=== PATIENT | female | born 1995 | race Caucasian/White ===

== ENCOUNTER 2024-10-30 10:05 | Emergency (ER) | payer SELFPAY ==
[2024-10-30] VITALS (21 sets, daily range): BP systolic 136–183; BP diastolic 98–130; PULSE 66–91; RESP 12–20; TEMP 36.7–36.8; O2SAT 95–100; BMI 30.4
--- NOTE | 2024-10-30 10:11 | ECG_ITS ---
APPROVED REPORT Exam: Resting ECG HR:75 bpm ECG Measurements Heart Rate 75 AXES AZ 136 P 29 QRSd 84 QRS 55 QT 369 T 33 QTc 398 Conclusion SINUS RHYTHM POSSIBLE ANTERIOR MYOCARDIAL INFARCTION , OF INDETERMINATE AGE [30 ms Q WAVE IN V3/V4, OR R < 0.2 mV IN V4] ABNORMAL ECG UNCONFIRMED REPORT Electronically signed by : JEROME DOCKERY, 10/31/2024 06:50:27
--- NOTE | 2024-10-30 10:43 | ED_ITS ---
Discharge Plan Disposition Patient Disposition: Home, Self-Care Prescriptions Prescriptions: No Action amlodipine 2.5 mg Tablet 2.5 mg PO DAILY lisinopril 10 mg Tablet 10 mg PO DAILY fenofibrate 160 mg Tablet 160 mg PO DAILY pantoprazole [Protonix] 20 mg Tablet,Delayed Release (Dr/Ec) 20 mg PO DAILY pregabalin [Lyrica] 200 mg Capsule 200 mg PO TID insulin glargine [Lantus U-100 Insulin] 100 unit/mL Solution 32 unit SQ BID tizanidine 4 mg tablet 4 mg PO DAILYDM Patient Comments: TAKE 1 TABLET BY MOUTH 3 TIMES DAILY NEEDED. FOR MUSCLE SPASM atorvastatin [Lipitor] 40 mg Tablet 40 mg PO DAILY duloxetine [Cymbalta] 60 mg Capsule,Delayed Release(Dr/Ec) 60 mg PO BID Referrals Follow up/Referrals: Manjula Ernandez DO [Staff Physician] - See instructions Activity Restrictions/Add. Instructions Additional Instructions/Restrictions: There is no intra-abdominal or cardiopulmonary emergency identified today with your emergency evaluation. However there was an incidental 4.9 cm cystic mass which appears to arise from your left ovary that needs follow-up with [facility]. A referral has been made please call make next available appointment for that. Otherwise follow-up with your primary care doctor for other concerns. Clinical Impressions Clinical Impression: Chest pain, Abdominal pain, RUQ, Cyst of left ovary Print Language Print Language: Chinese Discharge ED Provider: Mack Vincent HPI <Mack Vincent MD - Last Filed: 10/30/24 14:52> General Chief Complaint: Chest Pain Stated Complaint: CP Time Seen by Provider: 10/30/24 10:23 Mode of Arrival: EMS Source of Information: Patient Limitations: No Limitations Description of Symptoms (Recalled from ER Triage Doc. by RN): pt is here for chest pain upon inspiration x 1 week, states its sharp and crushing in nature, pt states she has gastro presis, type 1 dm, and htn. pt is in a ortho boot and has had big toe removed, normally gets care at [facility] History of Present Illness HPI narrative: Please note that above description of symptoms, in this electronic medical record under categorization of recalled from ER triage doctor by RN are reflective of an initial nursing assessment, however, is not reflective of my full history and physical exam that was personally taken and clarified. Consequentially, this preceding description of symptoms, which may include the patient's categorized chief complaint in the EMR, do not reflect my personal clinical impression, and the ultimate description of history of present illness and patient stated complaints should be deferred to this section of the note. Unless stated otherwise or congruent with this section of the note, additional signs, symptoms, or incongruence should be interpreted as inaccurate with my clinical impression. Related Data Home Medications ?Medication ?Instructions ?Recorded ?Confirmed amlodipine 2.5 mg tablet 2.5 mg PO DAILY 10/30/24 10/30/24 atorvastatin 40 mg tablet (Lipitor) 40 mg PO DAILY 10/30/24 10/30/24 duloxetine 60 mg capsule,delayed 60 mg PO BID 10/30/24 10/30/24 release (Cymbalta) fenofibrate 160 mg tablet 160 mg PO DAILY 10/30/24 10/30/24 insulin glargine 100 unit/mL 32 unit SQ BID 10/30/24 10/30/24 subcutaneous solution (Lantus U-100 Insulin) lisinopril 10 mg tablet 10 mg PO DAILY 10/30/24 10/30/24 pantoprazole 20 mg tablet,delayed 20 mg PO DAILY 10/30/24 10/30/24 release (Protonix) pregabalin 200 mg capsule (Lyrica) 200 mg PO TID 10/30/24 10/30/24 tizanidine 4 mg tablet 4 mg PO DAILYDM 10/30/24 10/30/24 Allergies Allergy/AdvReac Type Severity Reaction Status Date / Time Penicillins Allergy Rash Verified 10/30/24 10:31 [facility] <Mack Vincent MD - Last Filed: 10/30/24 14:52> [facility] Disclaimer: The information contained in this section may have been updated after the patient was seen, as this information can be updated by other users. Medical History (Updated 10/30/24 @ 16:09 by Elli Chan MD) Hypertension Gastroparesis Type 1 diabetes mellitus Social History (Updated 10/30/24 @ 14:52 by Mack Vincent MD) Smoking Status: Current every day smoker alcohol intake: current current occupational status: employed Travel in the last 8 weeks: None Have you lived/traveled outside [place] in past 30 days?: No Contact w/someone who lives/traveled outside US past 30 days?: No Exposure to someone with infectious disease in past 14 days?: No Do you have a fever (greater than 100.4 F or 38 C)?: No Have you tested positive for COVID-19: No Exposed to someone with COVID-19 in past 14 days?: No Do you have a sore throat?: No Do you have a cough?: No Do you have any weakness?: No Do you have any diarrhea?: No Are you experiencing any unusual bleeding?: No Do you have any muscle aches/pain?: No Do you have any abdominal pain?: No Are you experiencing loss of taste or smell?: No <Mack Vincent MD - Last Filed: 10/30/24 14:52> ROS Obtained: Yes All systems reviewed & no additional complaints except as documented Physical Exam <Mack Vincent MD - Last Filed: 10/30/24 14:52> General General appearance: alert and in no apparent distress Neck Neck exam: Present trachea midline Chest Chest inspection: Present normal inspection and symmetric chest wall rise Respiratory Respiratory exam: Present normal lung sounds bilaterally; Absent respiratory distress, wheezes, stridor, accessory muscle use or prolonged expiratory phase Cardiovascular Cardiovascular exam: Present regular rate, normal rhythm and other (Pulses equal and symmetric in upper and lower extremities) Abdominal Exam Abdominal exam: Present soft, tenderness and Salinas's sign; Absent distention, guarding, rebound, rigidity or tenderness at McBurney's Point Extremities Exam Extremities exam: Absent edema Neurological Exam Neurological exam: Present alert, oriented X3 and CN II-XII intact Skin Skin exam: Present warm and dry; Absent cyanosis, diaphoresis or pallor HEART Score <Mack Vincent MD - Last Filed: 10/30/24 14:52> HEART Score HEART Score assessment performed?: Yes HEART Score: 3 <Elli Chan MD - Last Filed: 10/30/24 16:11> HEART Score History (anamnesis): Slightly suspicious ECG: Non-specific disturbance Age: <45 years Risk factors: No known risk factors Troponin: </= normal limit HEART Score: 1 Procedures <Mack Vincent MD - Last Filed: 10/30/24 14:52> Limited Ultrasound Indication:: Limited RUQ ultrasound Indication: Abdominal pain, vomiting Identified structures: -Gallbladder -Gallbladder wall -Common bile duct -Liver Findings: Sonographic Salinas sign: Absent Gallstones: Absent Sludge: Absent Pericholecystic fluid: Absent Maximal GB wall thickness (mm) (normal is </= 3mm): Normal Common bile duct width (mm) (normal is </= 6mm): Normal Gallbladder width (cm) (normal is < 4cm): Normal Gallbladder length (cm) (normal is < 10cm): Normal Impression: Normal right upper quadrant ultrasound Images were saved to permanent archive The study was technically adequate CPT 54187-77 This study was performed by me, and I personally interpreted all images/videos. Based on my clinical judgement, these images were adequate and did not necessitate further imaging. Critical Care <Mack Vincent MD - Last Filed: 10/30/24 14:52> Critical Care Time Critical Care Time: No Medical Decision Making <Mack Vincent MD - Last Filed: 10/30/24 14:52> Medical Records Medical records reviewed: Yes I reviewed the patient's medical records. Remi Inquiry Pt receiving controlled substance: No Remi was queried for this patient: No Vital Signs Vital Signs: 10/30/24 10:05 10/30/24 10:15 10/30/24 10:25 Temperature 98.2 F Temperature Source Oral Pulse Rate 73 79 Pulse Rate [Left Radial] 79 Respiratory Rate 20 14 Blood Pressure 167/108 H Blood Pressure [Right Arm] 169/114 H Blood Pressure Mean [Right Arm] 132 02 Sat by Pulse Oximetry 99 98 Oxygen Delivery Method Room Air Room Air 10/30/24 10:30 10/30/24 10:45 10/30/24 11:15 Temperature Temperature Source Pulse Rate 86 74 77 Pulse Rate [Left Radial] Respiratory Rate 14 16 12 Blood Pressure 156/103 H 156/98 H 150/108 H Blood Pressure [Right Arm] Blood Pressure Mean [Right Arm] 02 Sat by Pulse Oximetry 98 98 96 Oxygen Delivery Method Room Air Room Air Room Air 10/30/24 11:31 10/30/24 11:45 10/30/24 12:00 Temperature Temperature Source Pulse Rate 91 H 67 66 Pulse Rate [Left Radial] Respiratory Rate 16 14 13 Blood Pressure 183/130 H 165/105 H 164/115 H Blood Pressure [Right Arm] Blood Pressure Mean [Right Arm] 02 Sat by Pulse Oximetry 95 99 99 Oxygen Delivery Method Room Air Room Air Room Air 10/30/24 12:15 10/30/24 12:30 10/30/24 12:45 Temperature Temperature Source Pulse Rate 82 67 80 Pulse Rate [Left Radial] Respiratory Rate 19 14 14 Blood Pressure 167/104 H 150/101 H 161/113 H Blood Pressure [Right Arm] Blood Pressure Mean [Right Arm] 02 Sat by Pulse Oximetry 100 99 99 Oxygen Delivery Method Room Air Room Air Room Air 10/30/24 13:00 10/30/24 13:15 10/30/24 14:46 Temperature Temperature Source Pulse Rate 87 86 80 Pulse Rate [Left Radial] Respiratory Rate 14 12 13 Blood Pressure 150/108 H 136/99 H 170/112 H Blood Pressure [Right Arm] Blood Pressure Mean [Right Arm] 02 Sat by Pulse Oximetry 99 98 97 Oxygen Delivery Method Room Air Room Air Room Air 10/30/24 15:00 Temperature Temperature Source Pulse Rate 80 Pulse Rate [Left Radial] Respiratory Rate 12 Blood Pressure 179/116 H Blood Pressure [Right Arm] Blood Pressure Mean [Right Arm] 02 Sat by Pulse Oximetry 98 Oxygen Delivery Method Room Air Lab Data Labs: Lab Results 10/30/24 10:25: WBC 12.2 H, RBC 4.44, Hgb 12.8, Hct 36.3 L, MCV 81.8, MCH 28.8, MCHC 35.3, RDW 13.0, Plt Count 338, MPV 10.4, Neut % (Auto) 70.4, Lymph % (Auto) 20.7, Arthur % (Auto) 5.1, Eos % (Auto) 2.1, Baso % (Auto) 1.1, Neut # (Auto) 8.6 H, Lymph # (Auto) 2.5, Arthur # (Auto) 0.6, Eos # (Auto) 0.3, Baso # (Auto) 0.1, PT 9.4, INR 0.83 L, APTT 23.8, D-Dimer 0.41, Sodium 136, Potassium 3.4 L, Chloride 104, Carbon Dioxide 22, Anion Gap 13.4, BUN 18 H, Creatinine 0.60, Estimated Creat Clear 200, Estimated GFR 119, Est GFR ( Amer) 144, G lucose 270 H, Hemoglobin A1c 8.2 H, Calcium 9.3, Magnesium 1.7, Total Bilirubin 0.4, AST 21, ALT 14, Alkaline Phosphatase 70, Troponin I < 0.01, Total Protein 6.6, Albumin 4.0, Globulin 2.6, Albumin/Globulin Ratio 1.5, Lipase 48, Procalcitonin 0.055, HCG, Quant < 2, Acetone Level None detected 10/30/24 10:52: VBG pH 7.48 H, VBG pCO2 28.2 L, VBG pO2 191.8 H, VBG HCO3 20.5 L , VBG Total CO2 21.3 L, VBG O2 Saturation 99.0 H, VBG Base Excess -3.0 L, VBG Lactic Acid 1.0 10/30/24 11:28: Urine Color Yellow, Urine Appearance Clear, Urine pH 7.0, Ur Specific [place] 1.010, Urine Protein Negative, Urine Glucose (UA) 2+, Urine Ketones Negative, Urine Blood Negative, Urine Nitrate Negative, Urine Bilirubin Negative, Urine Urobilinogen 0.2, Ur Leukocyte Esterase 1+ A, Urine RBC None, Urine WBC Occasional, Ur Squamous Epith Cells 3-5, Urine Bacteria Trace, Urine Opiates Screen Positive H, Urine Methadone Screen Negative, Ur Barbituates Screen Negative, Ur Phencyclidine Scrn Negative, Ur Amphetamines Screen Negative, U Benzodiazepines Scrn Negative, Urine Cocaine Screen Negative, U Marijuana (THC) Screen Positive H 10/30/24 13:44: Troponin I < 0.01 10/30/24 10:25 10/30/24 10:25 Response Orders (Tests/Meds): ED MEDICATIONS Discontinued Medications Generic Name Dose Route Start Last Admin Trade Name Freq PRN Reason Stop Dose Admin Belladonna Alkaloids 60 ml 10/30/24 10:44 10/30/24 11:10 Belladonna Alkaloids 60 Ml Ml PO 10/30/24 10:45 60 ml ONCE ONE Administration Sodium Chloride 1,000 mls @ 999 mls/hr 10/30/24 10:44 10/30/24 11:10 Sod Chlor 0.9% 1000ml Bag IV 10/30/24 11:44 999 mls/hr .Q1H1M ONE Administration Iopamidol 70 ml 10/30/24 14:08 10/30/24 14:09 Iopamidol-370 (76%);100ml Bottle IV 10/30/24 14:09 70 ml ONCE ONE Administration Morphine Sulfate 4 mg 10/30/24 10:44 10/30/24 11:10 Morphine 4mg/Ml Syringe IV 10/30/24 10:45 4 mg ONCE ONE Administration Morphine Sulfate 4 mg 10/30/24 13:22 10/30/24 13:28 Morphine 4mg/Ml Syringe IV 10/30/24 13:23 4 mg ONCE ONE Administration Ondansetron HCl 4 mg 10/30/24 10:44 10/30/24 11:10 Ondansetron 4mg/2ml Vial IV 10/30/24 10:45 4 mg ONCE ONE Administration Sodium Chloride 50 ml 10/30/24 14:08 10/30/24 14:09 0.9 % Sodium Chloride 50 Ml Vial IV 10/30/24 14:09 50 ml ONCE ONE Administration Sodium Chloride 10 ml 10/30/24 14:08 10/30/24 14:09 Sodium Chloride 0.9% 10ml Syr (Rad Only) IV 10/30/24 14:09 10 ml ONCE ONE Administration ORDERS Category Date Time Status CT angio abdomen pelvis Stat Cat Scan 10/30/24 12:[address] angio chest PE protocol Stat Cat Scan 10/30/24 12:55 Completed POCUS Point of Care (ER Only) Stat Exams 10/30/24 10:44 Completed XR chest portable Stat Exams 10/30/24 10:44 Completed Acetone, Serum (Rapid) Stat Lab 10/30/24 10:25 Completed Complete Blood Count Auto Diff Stat Lab 10/30/24 10:25 Completed Comprehensive Metabolic Panel Stat Lab 10/30/24 10:25 Completed D-Dimer Stat Lab 10/30/24 10:25 Completed Drug Screen,Urine Stat Lab 10/30/24 11:28 Completed HCG,Quantitative Stat Lab 10/30/24 10:25 Completed Hemoglobin A1C Stat Lab 10/30/24 10:25 Completed Lipase Stat Lab 10/30/24 10:25 Completed Magnesium Stat Lab 10/30/24 10:25 Completed PT INR [Prothrombin Time INR] Stat Lab 10/30/24 10:25 Completed PTT [Activated Partial Thrombo Time] Stat Lab 10/30/24 10:25 Completed Procalcitonin Stat Lab 10/30/24 10:25 Completed Troponin I Q3H Lab 10/30/24 13:44 Completed Troponin I Q3H Lab 10/30/24 16:45 Ordered Troponin I Stat Lab 10/30/24 10:25 Completed Urinalysis and Microscopic Stat Lab 10/30/24 11:28 Completed Blood Culture Stat Micro 10/30/24 11:02 Received Urine Culture Stat Micro 10/30/24 11:28 Received Venous Blood Gas Stat RT 10/30/24 10:52 Completed MDM Narrative Medical Decision Narrative: 29-year-old female history of uncontrolled type 1 diabetes presenting with abdominal/chest pain. States this has been going on for a couple of days, vomiting but is been nonbloody, nonbilious. Went to an outside ED, workup did not show anything. Continuing having epigastric pain that radiates to her right flank/back, so came in for further evaluation. No fevers or chills, urinary symptoms, stool symptoms, among others. History was obtained via conversation with patient. On arrival, patient hemodynamically stable, alert, oriented x4, appropriate, GCS 15, moving all extremities spontaneously, pupils equal and reactive to light. Full physical exam performed and significant for chronically ill-appearing, no acute distress and clinically well currently. Lungs are clear, cardiac exam without murmurs gallops rubs. No lower extremity edema, she does have a boot on her left lower extremity. 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 Abdomen soft, minimally tender, but Salinas sign positive and right upper quadrant. No flank tenderness. Differential includes PUD, gastritis, enteritis, gastroenteritis, pancreatitis, SBO, colitis, diverticulitis, nephrolithiasis, UTI, , cholecystitis, choledocholithiasis, appendicitis, hepatitis, torsion, aortic pathology, mesenteric ischemia, microvascular coronary artery disease, CHF, ACS, PR, coronary artery dissection, pneumothorax, PE, dissection, pericarditis, myocarditis, pneumothorax, aortic aneurysm, pneumonia, bronchitis, among others. Patient was given fluids, Zofran, GI cocktail, morphine for symptomatic management and correction of underlying abnormalities. Patient placed on continuous cardiac monitoring and continuous pulse ox with initial blood pressure 169/114, heart rate 79, saturation 99% on room air. Independent interpretation of EKG shows sinus rhythm 75 bpm with [place] 136, QRS 84, QTc 398. Normal axis. No acute ischemic change. Workup independently interpreted and significant for Mild leukocytosis 12.2. Coags normal VBG with mild metabolic acidosis with respiratory compensation pH 7.48/CO2 28.2/bicarb 20.5. Normal lactate. Nonactionable chemistry. A1c elevated 8.2. Troponin negative, negative. Acetone negative. Urinalysis without concern for UTI. Chest x-ray independently interpreted, no evidence of intrathoracic process. Bedside [id number] ultrasound negative. On room dilation, patient asking for Dilaudid by name specifically. Patient does not appear to be in pain on my evaluation. She is mildly hypertensive, but is noncompliant with medications and has history of hypertension. She is nontachycardic. Abdomen is benign. Meds were held off at this time, CT scan of the chest abdomen and pelvis ordered. On further conversation, patient states that she has had a DVT and is now having respirophasic chest pain. Scans ordered. On independent interpretation, I do not appreciate any PE, pneumothorax, intrathoracic or intra-abdominal abnormality. Prior to CT results, care handed off to oncoming physician Email Marketing Specialist disclaimer Much of this encounter note is an electronic loop drier operator spoken language to printed text. Electronic loop drier operator of the spoken language may permit errors. Although I have reviewed the note, some errors may still exist. <Elli Chan MD - Last Filed: 10/30/24 16:11> Vital Signs Vital Signs: 10/30/24 10:05 10/30/24 10:15 10/30/24 10:25 Temperature 98.2 F Temperature Source Oral Pulse Rate 73 79 Pulse Rate [Left Radial] 79 Respiratory Rate 20 14 Blood Pressure 167/108 H Blood Pressure [Right Arm] 169/114 H Blood Pressure Mean [Right Arm] 132 02 Sat by Pulse Oximetry 99 98 Oxygen Delivery Method Room Air Room Air 10/30/24 10:30 10/30/24 10:45 10/30/24 11:15 Temperature Temperature Source Pulse Rate 86 74 77 Pulse Rate [Left Radial] Respiratory Rate 14 16 12 Blood Pressure 156/103 H 156/98 H 150/108 H Blood Pressure [Right Arm] Blood Pressure Mean [Right Arm] 02 Sat by Pulse Oximetry 98 98 96 Oxygen Delivery Method Room Air Room Air Room Air 10/30/24 11:31 10/30/24 11:45 10/30/24 12:00 Temperature Temperature Source Pulse Rate 91 H 67 66 Pulse Rate [Left Radial] Respiratory Rate 16 14 13 Blood Pressure 183/130 H 165/105 H 164/115 H Blood Pressure [Right Arm] Blood Pressure Mean [Right Arm] 02 Sat by Pulse Oximetry 95 99 99 Oxygen Delivery Method Room Air Room Air Room Air 10/30/24 12:15 10/30/24 12:30 10/30/24 12:45 Temperature Temperature Source Pulse Rate 82 67 80 Pulse Rate [Left Radial] Respiratory Rate 19 14 14 Blood Pressure 167/104 H 150/101 H 161/113 H Blood Pressure [Right Arm] Blood Pressure Mean [Right Arm] 02 Sat by Pulse Oximetry 100 99 99 Oxygen Delivery Method Room Air Room Air Room Air 10/30/24 13:00 10/30/24 13:15 10/30/24 14:46 Temperature Temperature Source Pulse Rate 87 86 80 Pulse Rate [Left Radial] Respiratory Rate 14 12 13 Blood Pressure 150/108 H 136/99 H 170/112 H Blood Pressure [Right Arm] Blood Pressure Mean [Right Arm] 02 Sat by Pulse Oximetry 99 98 97 Oxygen Delivery Method Room Air Room Air Room Air 10/30/24 15:00 Temperature Temperature Source Pulse Rate 80 Pulse Rate [Left Radial] Respiratory Rate 12 Blood Pressure 179/116 H Blood Pressure [Right Arm] Blood Pressure Mean [Right Arm] 02 Sat by Pulse Oximetry 98 Oxygen Delivery Method Room Air Lab Data Lab results reviewed: Yes I reviewed the patient's lab results. Labs: Lab Results 10/30/24 10:25: WBC 12.2 H, RBC 4.44, Hgb 12.8, Hct 36.3 L, MCV 81.8, MCH 28.8, MCHC 35.3, RDW 13.0, Plt Count 338, MPV 10.4, Neut % (Auto) 70.4, Lymph % (Auto) 20.7, Arthur % (Auto) 5.1, Eos % (Auto) 2.1, Baso % (Auto) 1.1, Neut # (Auto) 8.6 H, Lymph # (Auto) 2.5, Arthur # (Auto) 0.6, Eos # (Auto) 0.3, Baso # (Auto) 0.1, PT 9.4, INR 0.83 L, APTT 23.8, D-Dimer 0.41, Sodium 136, Potassium 3.4 L, Chloride 104, Carbon Dioxide 22, Anion Gap 13.4, BUN 18 H, Creatinine 0.60, Estimated Creat Clear 200, Estimated GFR 119, Est GFR ( Amer) 144, G lucose 270 H, Hemoglobin A1c 8.2 H, Calcium 9.3, Magnesium 1.7, Total Bilirubin 0.4, AST 21, ALT 14, Alkaline Phosphatase 70, Troponin I < 0.01, Total Protein 6.6, Albumin 4.0, Globulin 2.6, Albumin/Globulin Ratio 1.5, Lipase 48, Procalcitonin 0.055, HCG, Quant < 2, Acetone Level None detected 10/30/24 10:52: VBG pH 7.48 H, VBG pCO2 28.2 L, VBG pO2 191.8 H, VBG HCO3 20.5 L , VBG Total CO2 21.3 L, VBG O2 Saturation 99.0 H, VBG Base Excess -3.0 L, VBG Lactic Acid 1.0 10/30/24 11:28: Urine Color Yellow, Urine Appearance Clear, Urine pH 7.0, Ur Specific [place] 1.010, Urine Protein Negative, Urine Glucose (UA) 2+, Urine Ketones Negative, Urine Blood Negative, Urine Nitrate Negative, Urine Bilirubin Negative, Urine Urobilinogen 0.2, Ur Leukocyte Esterase 1+ A, Urine RBC None, Urine WBC Occasional, Ur Squamous Epith Cells 3-5, Urine Bacteria Trace, Urine Opiates Screen Positive H, Urine Methadone Screen Negative, Ur Barbituates Screen Negative, Ur Phencyclidine Scrn Negative, Ur Amphetamines Screen Negative, U Benzodiazepines Scrn Negative, Urine Cocaine Screen Negative, U Marijuana (THC) Screen Positive H 10/30/24 13:44: Troponin I < 0.01 Response Orders (Tests/Meds): ED MEDICATIONS Discontinued Medications Generic Name Dose Route Start Last Admin Trade Name Freq PRN Reason Stop Dose Admin Belladonna Alkaloids 60 ml 10/30/24 10:44 10/30/24 11:10 Belladonna Alkaloids 60 Ml Ml PO 10/30/24 10:45 60 ml ONCE ONE Administration Sodium Chloride 1,000 mls @ 999 mls/hr 10/30/24 10:44 10/30/24 11:10 Sod Chlor 0.9% 1000ml Bag IV 10/30/24 11:44 999 mls/hr .Q1H1M ONE Administration Iopamidol 70 ml 10/30/24 14:08 10/30/24 14:09 Iopamidol-370 (76%);100ml Bottle IV 10/30/24 14:09 70 ml ONCE ONE Administration Morphine Sulfate 4 mg 10/30/24 10:44 10/30/24 11:10 Morphine 4mg/Ml Syringe IV 10/30/24 10:45 4 mg ONCE ONE Administration Morphine Sulfate 4 mg 10/30/24 13:22 10/30/24 13:28 Morphine 4mg/Ml Syringe IV 10/30/24 13:23 4 mg ONCE ONE Administration Ondansetron HCl 4 mg 10/30/24 10:44 10/30/24 11:10 Ondansetron 4mg/2ml Vial IV 10/30/24 10:45 4 mg ONCE ONE Administration Sodium Chloride 50 ml 10/30/24 14:08 10/30/24 14:09 0.9 % Sodium Chloride 50 Ml Vial IV 10/30/24 14:09 50 ml ONCE ONE Administration Sodium Chloride 10 ml 10/30/24 14:08 10/30/24 14:09 Sodium Chloride 0.9% 10ml Syr (Rad Only) IV 10/30/24 14:09 10 ml ONCE ONE Administration ORDERS Category Date Time Status CT angio abdomen pelvis Stat Cat Scan 10/30/24 12:[address] angio chest PE protocol Stat Cat Scan 10/30/24 12:55 Completed POCUS Point of Care (ER Only) Stat Exams 10/30/24 10:44 Completed XR chest portable Stat Exams 10/30/24 10:44 Completed Acetone, Serum (Rapid) Stat Lab 10/30/24 10:25 Completed Complete Blood Count Auto Diff Stat Lab 10/30/24 10:25 Completed Comprehensive Metabolic Panel Stat Lab 10/30/24 10:25 Completed D-Dimer Stat Lab 10/30/24 10:25 Completed Drug Screen,Urine Stat Lab 10/30/24 11:28 Completed HCG,Quantitative Stat Lab 10/30/24 10:25 Completed Hemoglobin A1C Stat Lab 10/30/24 10:25 Completed Lipase Stat Lab 10/30/24 10:25 Completed Magnesium Stat Lab 10/30/24 10:25 Completed PT INR [Prothrombin Time INR] Stat Lab 10/30/24 10:25 Completed PTT [Activated Partial Thrombo Time] Stat Lab 10/30/24 10:25 Completed Procalcitonin Stat Lab 10/30/24 10:25 Completed Troponin I Q3H Lab 10/30/24 13:44 Completed Troponin I Q3H Lab 10/30/24 16:45 Ordered Troponin I Stat Lab 10/30/24 10:25 Completed Urinalysis and Microscopic Stat Lab 10/30/24 11:28 Completed Blood Culture Stat Micro 10/30/24 11:02 Received Urine Culture Stat Micro 10/30/24 11:28 Received Venous Blood Gas Stat RT 10/30/24 10:52 Completed MDM Narrative Medical Decision Narrative: 29-year-old female history of uncontrolled type 1 diabetes presenting with abdominal/chest pain. States this has been going on for a couple of days, vomiting but is been nonbloody, nonbilious. Went to an outside ED, workup did not show anything. Continuing having epigastric pain that radiates to her right flank/back, so came in for further evaluation. No fevers or chills, urinary symptoms, stool symptoms, among others. History was obtained via conversation with patient. On arrival, patient hemodynamically stable, alert, oriented x4, appropriate, GCS 15, moving all extremities spontaneously, pupils equal and reactive to light. Full physical exam performed and significant for chronically ill-appearing, no acute distress and clinically well currently. Lungs are clear, cardiac exam without murmurs gallops rubs. No lower extremity edema, she does have a boot on her left lower extremity. 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 Abdomen soft, minimally tender, but Salinas sign positive and right upper quadrant. No flank tenderness. Differential includes PUD, gastritis, enteritis, gastroenteritis, pancreatitis, SBO, colitis, diverticulitis, nephrolithiasis, UTI, , cholecystitis, choledocholithiasis, appendicitis, hepatitis, torsion, aortic pathology, mesenteric ischemia, microvascular coronary artery disease, CHF, ACS, PR, coronary artery dissection, pneumothorax, PE, dissection, pericarditis, myocarditis, pneumothorax, aortic aneurysm, pneumonia, bronchitis, among others. Patient was given fluids, Zofran, GI cocktail, morphine for symptomatic management and correction of underlying abnormalities. Patient placed on continuous cardiac monitoring and continuous pulse ox with initial blood pressure 169/114, heart rate 79, saturation 99% on room air. Independent interpretation of EKG shows sinus rhythm 75 bpm with AZ 136, QRS 84, QTc 398. Normal axis. No acute ischemic change. Workup independently interpreted and significant for Mild leukocytosis 12.2. Coags normal VBG with mild metabolic acidosis with respiratory compensation pH 7.48/CO2 28.2/bicarb 20.5. Normal lactate. Nonactionable chemistry. A1c elevated 8.2. Troponin negative, negative. Acetone negative. Urinalysis without concern for UTI. Chest x-ray independently interpreted, no evidence of intrathoracic process. Bedside gddco-sy-abeo ultrasound negative. On room dilation, patient asking for Dilaudid by name specifically. Patient does not appear to be in pain on my evaluation. She is mildly hypertensive, but is noncompliant with medications and has history of hypertension. She is nontachycardic. Abdomen is benign. Meds were held off at this time, CT scan of the chest abdomen and pelvis ordered. On further conversation, patient states that she has had a DVT and is now having respirophasic chest pain. Scans ordered. On independent interpretation, I do not appreciate any PE, pneumothorax, intrathoracic or intra-abdominal abnormality. Prior to CT results, care handed off to oncoming physician Email Marketing Specialist disclaimer Much of this encounter note is an electronic loop drier operator spoken language to printed text. Electronic loop drier operator of the spoken language may permit errors. Although I have reviewed the note, some errors may still exist. Reassessment this is Dr. Chan at 4:10 PM I took over from Dr. Vincent. CT scans were performed and I reviewed radiology reads which did not show any evidence of any intra-abdominal pathology or cardiopulmonary pathology specifically no aortic dissection or pulmonary embolism etc. Also nothing to explain her epigastric or right upper quadrant abdominal pain. However there was an incidental 4.9 cm cystic mass which appears to arise from the left ovary. This was explained to the patient she is aware that this needs close outpatient FAMILY CONSUMER SCIENTIST follow-up. She has no lower abdominal discomfort this is not concerning for torsion etc. Additionally patient's urinalysis was not completely normal but she has no signs or symptoms of urinary tract infection either. Patient was discharged in improved and stable condition.
--- NOTE | 2024-10-30 10:44 | XR_ITS ---
FINAL REPORT CLINICAL HISTORY: cp, soa COMPARISON: 08/19/2022 FINDINGS: CHEST: A single view of the chest was performed. The patient is skeletally immature. The heart size is normal. The mediastinum is normal. There is no focal infiltrate or edema. There are no pleural effusions. There is no pneumothorax. There is no osseous abnormality. IMPRESSION: No acute cardiopulmonary process Reviewed, Interpreted and Dictated by José Carvajal MD Transcribed by Sandrine King Authenticated and [facility]
[2024-10-30 10:53] LABS: Acetone, Serum (Rapid) None Detected (None Detect)
[2024-10-30 10:56] LABS: Basophils # 0.1 K/mm3 (0-0.2); Basophils % 1.1 % (0.1-2.0); Eosinophils # 0.3 K/mm3 (0.0-0.4); Eosinophils % 2.1 % (0.1-12.0); Hematocrit 36.3 % (37.0-47.0); Hemoglobin 12.8 g/dL (12.2-16.2); Lymphocytes # 2.5 K/mm3 (0.7-4.5); Lymphocytes % 20.7 % (10-50); Mean Corpuscular HGB Conc 35.3 g/dL (31.8-35.4); Mean Corpuscular Hemoglobin 28.8 pg (27.0-31.2); Mean Corpuscular Volume 81.8 fl (81-99); Mean Platelet Volume 10.4 fl (7.4-10.4); Monocytes # 0.6 K/mm3 (0.1-1.0); Monocytes % 5.1 % (1.7-9.3); Neutrophils # 8.6 K/mm3 (1.8-7.8); Neutrophils % 70.4 % (37.0-80.0); Platelet Count 338 K/mm3 (142-424); Red Blood Count 4.44 M/mm3 (4.20-5.40); White Blood Count 12.2 K/mm3 (4.8-10.8)
[2024-10-30 10:57] LABS: VBG HCO3 20.5 mmol/L (23-30); VBG PCO2 28.2 mmol/L (35-51); VBG PH 7.48 mmol/L (7.31-7.41); VBG PO2 191.8 mmol/L (28-40); VBG Total CO2 21.3 mmol/L (23-27)
[2024-10-30 10:57] LABS: Alanine Aminotransferase 14 U/L (12-78); Albumin/Globulin Ratio 1.5 (1.1-1.8); Alkaline Phosphatase 70 U/L (38-126); Anion Gap 13.4 mEq/L (5-15); Aspartate Amino Transferase 21 U/L (14-36); Bilirubin,Total 0.4 mg/dl (0.2-1.3); Blood Urea Nitrogen 18 mg/dl (7-17); Calcium 9.3 mg/dl (8.4-10.2); Carbon Dioxide 22 mmol/L (22.0-30.0); Chloride 104 mmol/L (98-107); Creatinine Clearance Estimated 200 mL/min (50-200); Estimated Glomerular Filt Rate 119 ml/min (>60); GFR (African American) 144 ML/MIN (>60); Globulin 2.6 g/dL (1.3-3.2); Glucose 270 mg/dl (74-100); Potassium 3.4 mmoL/L (3.5-5.1); Sodium 136 mmol/L (136-145); Total Protein,Serum 6.6 g/dl (6.3-8.2)
[2024-10-30 10:58] LABS: Lipase 48 U/L (23-300); Magnesium 1.7 mg/dl (1.6-2.3)
[2024-10-30 11:04] LABS: Activated Partial Thrombo Time 23.8 seconds (22.5-28.5)
[2024-10-30] MEDS: ONDANSETRON 4MG/2ML VIAL 4 MG IV (11:10)
[2024-10-30] MEDS: BELLADONNA ALKALOIDS 60 ML ML PO (11:10)
[2024-10-30] MEDS: MORPHINE 4MG/ML SYRINGE 4 MG IV ×2 (11:10→13:28)
[2024-10-30] MEDS: 0.9 % SODIUM CHLORIDE 1000ML 1,000 ML 999 ML IV (11:10)
--- NOTE | 2024-10-30 11:11 | PC.NURSE ---
PT MEDICATED PER EMAR, CALL LIGHT WITHIN REACH. NO NEEDS AT THIS TIME
[2024-10-30 11:13] LABS: INR 0.83 (0.9-1.1); Prothrombin Time 9.4 seconds (9.2-12.1)
[2024-10-30 11:15] LABS: Procalcitonin 0.055 ng/mL (0.0-2.0)
[2024-10-30 11:17] LABS: HCG,Quantitative < 2 mIU/ml (0-5.42)
[2024-10-30 11:18] LABS: Troponin I < 0.01 ng/ml (0.00-0.034)
[2024-10-30 11:33] LABS: D-Dimer 0.41 ug/mL (0.0-0.5)
[2024-10-30 11:35] LABS: Microscopic, Urine URINE MICROSCOPIC (MICROSCOPIC)
[2024-10-30 11:36] LABS: Appearance,Urine CLEAR (Clear); Bilirubin,Urine Negative (Negative); Blood, Urine Negative (Negative); Color,Urine YELLOW (Yellow); Glucose,Urine (UA) 2+ (Negative); Ketones,Urine Negative (Negative); Leukocyte Esterase,Urine 1+ (Negative); Nitrate,Urine Negative (Negative); Protein,Urine Negative (Negative); Urobilinogen,Urine 0.2 EU/dl (0.2)
[2024-10-30 11:47] LABS: Bacteria,Urine Trace /lpf; WBC,Urine Occasional #/hpf (0-3)
--- NOTE | 2024-10-30 11:52 | PC.NURSE ---
pt called out for to say the morphine we gave her didnt work and normally everywhere else has to give dilaudid for her relief, ER made aware, no further orders
[2024-10-30 11:53] LABS: Hemoglobin A1C 8.2 % (4.0-6.0)
[2024-10-30 12:03] LABS: Amphetamine/Metha Screen,Urine Negative ng/ml (<1000); Barbiturates Screen,Urine Negative ng/ml (<200); Benzodiazepines Screen,Urine Negative ng/ml (<200); Cannabinoid Screen,Urine Positive ng/ml (<50); Cocaine Screen,Urine Negative ng/ml (<300); Methadone Screen,Urine Negative ng/ml (<300); Opiate Screen,Urine Positive ng/ml (<300); Phencyclidine Screen,Urine Negative ng/ml (<25)
--- NOTE | 2024-10-30 12:55 | CT_ITS ---
FINAL REPORT TECHNIQUE: The patient was injected with IV contrast. Axial images were obtained through the chest in a PE protocol. 3-D reconstruction images were also performed. Individualized dose reduction techniques using automated exposure control or adjustment of the MA and/or KV according to patient's size were employed. CLINICAL HISTORY: respirophasic pain, history of DVT COMPARISON: None FINDINGS: Soft tissue in the anterior mediastinum is probable residual thymic tissue. Mediastinal vasculature is adequately opacified. No pulmonary artery filling defects are identified to suggest PE. There is no aortic dissection. There is no axillary adenopathy. There is no hilar or mediastinal adenopathy. The heart size is normal. There is no pericardial or pleural effusion. Limited images of the upper abdomen are unremarkable. No suspicious infiltrate or nodule is identified. IMPRESSION: No pulmonary embolus or dissection. Reviewed, Interpreted and Dictated by José Carvajal MD Transcribed by Sarah Felder Authenticated and . [facility]
--- NOTE | 2024-10-30 12:55 | CT_ITS ---
FINAL REPORT TECHNIQUE: Pre-and postcontrast images of the abdomen and pelvis were performed by computed tomography. Extensive 3-D reconstruction images were performed. A CTA was performed. This study was performed with techniques to keep radiation doses as low as reasonably achievable (ALARA). Individualized dose reduction techniques using automated exposure control or adjustment of mA and/or kV according to the patient''s size were employed. CLINICAL HISTORY: RUQ/epigastric pain FINDINGS: ABDOMEN AND PELVIS: The lung bases are clear. Precontrast images demonstrate no evidence of nephrolithiasis. No adrenal masses are identified. The liver, spleen and pancreas are unremarkable. The appendix is normal. There is a cystic structure in the mid pelvis measuring up to 4.9 cm likely related to a left ovarian cyst. The uterus is present. CTA: The abdominal aorta is proper caliber. The SMA, celiac axis, and SHELDON are patent. There is no significant stenosis or calcification. The renal arteries are patent bilaterally. IMPRESSION: No evidence of renal vascular hypertension or significant renal artery stenosis. 4.9 cm cystic mass which appears to arise from the left ovary. Recommend SURVEILLANCE SUPERVISOR consultation and follow-up endovaginal ultrasound in 6-10 weeks time. Reviewed, Interpreted and Dictated by José Carvajal MD Transcribed by Anju Weber Authenticated and [facility]
[2024-10-30] MEDS: IOPAMIDOL-370 (76%);100ML BOTTLE 70 ML IV (14:09)
[2024-10-30] MEDS: SODIUM CHLORIDE 0.9% 10ML SYR (RAD ONLY) 10 ML IV (14:09)
[2024-10-30] MEDS: 0.9 % SODIUM CHLORIDE 50 ML VIAL IV (14:09)
[2024-10-30 14:16] LABS: Troponin I < 0.01 ng/ml (0.00-0.034)
--- NOTE | 2024-10-30 14:35 | PC.NURSE ---
pt resting quietly awaiting ct scan results
--- NOTE | 2024-10-30 14:54 | PC.NURSE ---
PT WAS GIVEN A WARM BLANEKT
--- NOTE | 2024-10-30 15:03 | PC.NURSE ---
gave patient soda while awaiting test results
--- NOTE | 2024-10-30 15:20 | PC.NURSE ---
MD aware of hypertension at this time. no new orders
--- NOTE | 2024-10-30 16:02 | PC.NURSE ---
spoke with Lashaun in radiology about the patient's CT abd. CT. they stated a prelim just came back and they will fax it over.
--- NOTE | 2024-10-30 16:07 | PC.NURSE ---
Dr. Chan at bedside
== END 2024-10-30 16:28 | disposition home or self-care (01) ==
PROVIDERS: Emergency Provider Emergency Medicine
DX: N83.202 Unspecified ovarian cyst, left side (principal); R07.9 Chest pain, unspecified; R10.11 Right upper quadrant pain; F17.210 Nicotine dependence, cigarettes, uncomplicated
CPT/HCPCS: 71045; 71275; 74174; 80053; 80307; 81001; 82009; 82803; 83036; 83690; 83735; 84145; 84484; 84702; 85025; 85378; 85610; 85730; 87040; 87086; 93005; 96361; 96374; 96375; 99285; J2270; J2405; J7030; Q9967

== ENCOUNTER 2025-03-15 15:33 | Emergency (ER) | payer SELFPAY ==
--- NOTE | 2025-03-15 15:35 | ECG_ITS ---
APPROVED REPORT Exam: Resting ECG HR:84 bpm ECG Measurements Heart Rate 84 AXES DC 153 P 61 QRSd 92 QRS 70 QT 389 T 62 QTc 431 Conclusion SINUS RHYTHM NORMAL ECG Electronically signed by : GOLD TORRES, 03/15/2025 23:41:41
[2025-03-15 15:40] VITALS: BP 159/108; PULSE 81; RESP 18; TEMP 36.8; O2SAT 99; BMI 27.3
--- OUTSIDE RECORDS SUMMARY | 2025-03-15 15:45 | XMS_ITS | Clinical Summary ---
Author Organization [employer] [facility] Address [address] [place] [address] Phone Care Team Providers Care Patient Services Technician Name Role Phone Shannen AREVALO Rhnea Primary Care Physician Unavail able Conditions or Problems Problem Name Problem Code Onset Date Status Entry Date Provider Comment Standard Description Annotate Body mass index (BMI) 31.0-31.9; adult Z68.31 (ICD-10-CM ) 01/04 Active 01/14 [facility] MANAGER QUALITY COMPLIANCE Body mass index [BMI] 31.0-31.9, adult Body mass index (BMI) 30.0-30.9; adult Z68.30 (ICD-10-CM ) 12/24 Correction 12/25 [facility] MANAGER QUALITY COMPLIANCE Body mass index [BMI] 30.0-30.9, adult Acute pancreatitis without necrosis or infection, unspecified 842657256 (SNOMED CT) 01/04 Active 01/04 [facility] MANAGER QUALITY COMPLIANCE Acute pancreatitis Hypertriglyc eridemia 144755124 (SNOMED CT) 01/04 Active 01/04 [facility] MANAGER QUALITY COMPLIANCE Hypertriglyceri demia Body mass index (BMI) 30.0-30.9; adult Z68.30 (ICD-10-CM ) 12/24 Removed 12/25 Chayo Chai DO Body mass index [BMI] 30.0-30.9, adult Body mass index (BMI) 30.0-30.9; adult Z68.30 (ICD-10-CM ) 12/24 Correction 12/24 Chayo Chai DO Body mass index [BMI] 30.0-30.9, adult History of deep venous thrombosis 633650202 (SNOMED CT) 12/24 Active 12/24 Chayo Chai DO H/O: thrombosis Body mass index (BMI) 30.0-30.9; adult Z68.30 (ICD-10-CM ) 12/24 Removed 12/24 Chayo Chai DO Body mass index [BMI] 30.0-30.9, adult Body mass index (BMI) 31.0-31.9; adult Z68.31 (ICD-10-CM ) Correction 09/27 Chayo Chai DO Body mass index [BMI] 31.0-31.9, adult Body mass index (BMI) 31.0-31.9; adult Z68.31 (ICD-10-CM ) Removed 09/27 Netta Elizalde APRN Body mass index [BMI] 31.0-31.9, adult Body mass index (BMI) 31.0-31.9; adult Z68.31 (ICD-10-CM ) 10/17 Correction 10/28 Netta Elizalde APRN Body mass index [BMI] 31.0-31.9, adult Tobacco User 133353276 (SNOMED CT) Active 09/27 Netta Elizalde APRN Tobacco user Body mass index (BMI) 31.0-31.9; adult Z68.31 (ICD-10-CM ) 10/17 Removed 10/28 Netta Elizalde APRN Body mass index [BMI] 31.0-31.9, adult Drug seeking behavior 741137340 (SNOMED CT) 10/17 Active 10/28 Netta Elizalde APRN Drug seeking behavior Body mass index (BMI) 31.0-31.9; adult Z68.31 (ICD-10-CM ) 10/17 Correction 10/17 Netta Fide WINSTON Body mass index [BMI] 31.0-31.9, adult Surgical amputation of toe 988298496 (SNOMED CT) 10/17 Active 10/28 Netta Elizalde MANAGER QUALITY COMPLIANCE Amputated toe Peripheral neuropathy 508890737 (SNOMED CT) 10/17 Active 10/17 Swapna Gallegos CMA Peripheral nerve disease Body mass index (BMI) 31.0-31.9; adult Z68.31 (ICD-10-CM ) 10/17 Removed 10/17 Swapna Gallegos CMA Body mass index [BMI] 31.0-31.9, adult Type 2 diabetes mellitus with other specified complication 638193552 (SNOMED CT) 10/17 Active 10/17 Swapna Gallegos CMA Well controlled type 2 diabetes mellitus Medications Medication Instructions Start Date Stop Date Generic Name [facility] Provider CONNIE SOLOSTAR 100 UNIT/ML SOPN Inject 33 unit twice a day as directed insulin glargine [id number] [facility] MANAGER QUALITY COMPLIANCE ELIQUIS 5 MG TABS 01/04 apixaban 46781330037 [facility] MANAGER QUALITY COMPLIANCE METOPROLOL TARTRATE 25 MG TABS Take 1 tablet by mouth twice a day metoprolol tartrate 97997414413 [facility] MANAGER QUALITY COMPLIANCE NOVOLOG FLEXPEN RELION 100 UNIT/ML SOPN Inject 8 unit subcutaneously three times a day as directed according to blood sugar insulin aspart u-100 15543049324 [facility] MANAGER QUALITY COMPLIANCE VITAMIN D (ERGOCALCIFEROL ) 1.25 MG (44499 UT) CAPS Take 1 capsule by mouth once a week ergocalciferol (vitamin d2) 71611592410 Chayo Chai DO DULOXETINE HCL 30 MG CPEP 12/24 duloxetine 69159676011 Chayo Chai DO METFORMIN HCL ER 500 MG [id number] Take 2 tablet by mouth twice a day metformin 93201460559 Chayo Chai DO ONDANSETRON 4 MG TBDP 12/24 ondansetron 29464149261 Chayo Chai DO PANTOPRAZOLE SODIUM 20 MG TBEC 12/24 pantoprazole 11398684827 Chayo Chai DO FENOFIBRATE 145 MG TABS 12/24 fenofibrate nanocrystallized 79158251082 Chayo Chai DO NOVOLOG FLEXPEN RELION 100 UNIT/ML SOPN 12/24 insulin aspart u-100 97814099295 Chayo Chai DO OXYCODONE-ACETA MINOPHEN 10-325 MG TABS 12/24 oxycodone-acetamin ophen 94624918906 Chayo Chai DO ATORVASTATIN CALCIUM 40 MG TABS 12/24 atorvastatin 30487202729 Chayo Chai DO LANTUS SOLOSTAR 100 UNIT/ML SOPN 12/24 insulin glargine 67052810783 Chayo Chai DO ATORVASTATIN CALCIUM 40 MG TABS Take 1 tablet by mouth once a day as directed atorvastatin 08233527596 Chayo Chai DO DULOXETINE HCL 30 MG CPEP Take 1 capsule by mouth three times a day as directed duloxetine 04389253945 Chayo Chai DO FENOFIBRATE 145 MG TABS Take 1 tablet by mouth once a day as directed fenofibrate nanocrystallized 20108433115 Chayo Chai DO LANTUS SOLOSTAR 100 UNIT/ML SOPN Inject 30 unit twice a day as directed insulin glargine 84454058604 Chayo Chai DO NOVOLOG FLEXPEN RELION 100 UNIT/ML SOPN Inject 8 unit subcutaneously three times a day as directed insulin aspart u-100 08061301310 Chayo Chai DO PANTOPRAZOLE SODIUM 20 MG TBEC Take 1 tablet by mouth once a day as directed pantoprazole 95620222566 Chayo Chai DO VITAMIN D (ERGOCALCIFEROL ) 71875 UNIT CAPS 10/06 ergocalciferol (vitamin d2) 72080350265 Netta Elizalde APRN VITAMIN D (ERGOCALCIFEROL ) 1.25 MG (29237 UT) CAPS Take 1 capsule by mouth once a week ergocalciferol (vitamin d2) 41944216576 Netta Elizalde APRN MICRODOT PEN NEEDLE 32G X 4 MM Use 1 needle subcutaneously as directed 11/12 pen needle, diabetic 48525618685 Netta Fide MANAGER QUALITY COMPLIANCE BD PEN NEEDLE YOVANY 2ND GEN 32G X 4 MM Use 1 needle subcutaneously four times a day with pen pen needle, diabetic 20104220244 Netta Elizalde MANAGER QUALITY COMPLIANCE PREGABALIN 200 MG CAPS 11/05 pregabalin 78718662615 Netta Elizalde APRN PREGABALIN 200 MG CAPS 1 capsule by mouth three times a day pregabalin 50988223109 Netta Elizalde APRN MICRODOT PEN NEEDLE 32G X 4 MM 10/17 pen needle, diabetic 05094907981 Netta Elizalde MANAGER QUALITY COMPLIANCE MICRODOT PEN NEEDLE 32G X 4 MM Use 1 needle subcutaneously as directed pen needle, diabetic 80792260244 Netta Elizalde APRN FREESTYLE DELICIA 2 SENSOR flash glucose sensor 58539632371 Rose Mary Petit MA ELIQUIS 5 MG TABS apixaban 36175261025 Rose Mary Petit MA FREESTYLE DELICIA 2 READER CADEN flash glucose scanning reader 74190901777 Rose Mary Petit MA ICOSAPENT ETHYL 1 GM CAPS icosapent ethyl 84183039576 Ximena Petit MA LANTUS SOLOSTAR 100 UNIT/ML SOPN insulin glargine 69901634047 Rashmi Petit MA FENOFIBRATE 145 MG TABS fenofibrate nanocrystallized 89028290943 Rose Mary Petit MA PREGABALIN 200 MG CAPS pregabalin 79220532031 Rose Mary Petit MA DULOXETINE HCL 30 MG CPEP duloxetine 93131771440 Rose Mary Petit MA METOPROLOL TARTRATE 25 MG TABS metoprolol tartrate 22702312156 Rose Mary Petit MA NOVOLOG FLEXPEN RELION 100 UNIT/ML SOPN insulin aspart u-100 15377955238 Rose Mary Petit MA ONDANSETRON 4 MG TBDP ondansetron 14332233572 Rose Mary Petit MA METFORMIN HCL ER 500 MG [id number] metformin 48240066517 Rose Mary Petit MA VITAMIN D (ERGOCALCIFEROL ) 77662 UNIT CAPS ergocalciferol (vitamin d2) 28518423720 Rose Mary Petit MA OXYCODONE-ACETA MINOPHEN 10-325 MG TABS oxycodone-acetam in ophen 64006890256 Rose Mary Petit MA PANTOPRAZOLE SODIUM 20 MG TBEC pantoprazole 82523360011 Rose Mary Petit MA TIZANIDINE HCL 4 MG TABS tizanidine 16968852819 Rose Mary Petit MA ATORVASTATIN CALCIUM 40 MG TABS atorvastatin 12058198256 Rose Mary Petit MA MICRODOT PEN NEEDLE 32G X 4 MM pen needle, diabetic 66436894926 Rose Mary Petit MA AZITHROMYCIN 250 MG TABS TAKE 2 TABLETS ON DAY ONE. ON DAYS 2-4 TAKE 1 TAB. 01/11 azithromycin [id number] Virginia Pride DMD Medications Administered No information available. Allergies, Adverse Reactions, Alerts Allergy Name Reaction Description Start Date Severity Statu s Provider PCN Critical Active Vangie marie PA-C Results Date Name Value Unit Range Flag Description Office Visit: New pt, here t o establish care RM 1 LDL GOAL <70 mg/dL LDL target l evel Lab Report: LIPID PANEL WITH REFLEX TO DIRECT LDL, LIPID PANEL WITH REFL ... TSH 1.20 u[iU]/mL N Thyrotropin [Units/volume] in Serum or Plasma BILI INDIREC 0.4 MG/DL (CALC) mg/dL 0.2-1.2 N bilirubin, serum , indirect BILI DIRECT 0.1 mg/dL < OR = 0.2 N Bilirubin.direct [Mass/volume] in Serum or Plasma IRON SATUR % 15 % (CALC) % 16-45 L Iron saturation [Mass Fraction] in Serum or Plasma IRON 54 ug/dL 40-190 N Iron [Mass/vo lume] in Serum or Plasma Office Visit: Acute Visit Ve rsion 2 using combo CCC & HP forms MICROALB TST NORMAL mg/dL Microalb umin [Mass/volume] in Urine GILMA/UR CR RT <30 mg/L microalb umin/creatin ine ratio, urine CREATIN UR 30 mg/dL Creatinine [Mass/volume] in Urine ALBUMIN, UR 300 % albumin, urine Lab Report: LIPID PANEL WITH REFLEX TO DIRECT LDL, LIPID PANEL WITH REFL ... VIT D 25-OH 23 ng/mL 30-100 L 25-Hydrox ycalciferol [Mass/volume] in Serum or Plasma BASO % MANU 1.3 % N basophils as percent of blood leukocytes, manual count EOS % MANU 4.5 % N eosinophil s as percent of blood leukocytes, manual count MONOCYTE % 9.1 % N Monocytes/ 100 leukocytes in Blood by Automated count LYMPH% P BLD 37.5 % N lymphocy pierre as percent of blood leukocytes PMN % 47.6 % N Neutrophils/1 00 leukocytes in Blood by Automated count ABS BASOS 147 {Cells}/u L 0-200 N Basophils [#/volume] in Blood ABS EOS 509 {Cells}/u L 15-500 H Eosinophils [#/volume] in Blood ABS MONOS 1028 {Cells}/u L 200-950 H Monocytes [#/volume] in Blood ABSLYMPHCT 4238 {Cells}/u L 850-3900 H Lymphocytes [#/volume] in Blood ABS NEUTROPH 5379 CELLS/UL 10*3/uL 8137-6853 N Neutrophils [#/volume] in Blood MPV 10.4 fL 7.5-12.5 N Platelet karyna n volume [Entitic volume] in Blood by Lynne PLATELETK/UL 438 THOUSAND/UL 10*3/uL 140-400 H platelet count RDW 14.9 % 11.0-15.0 N Erythrocyte distribution width [Ratio] by Automated count OL-MCHC 33.3 g/dL 32.0-36.0 N mean corpus cular hemoglobin concentration, rbc MCH 27.0 pg 27.0-33.0 N MCH [Entiti c mass] by Automated count MCV 81.1 fL 80.0-100. 0 N MCV [Entitic volume] by Automated count HCT 43.2 % 35.0-45.0 N Hematocrit [Volume Fraction] of Blood by Automated count HGB 14.4 g/dL 11.7-15.5 N Hemoglobin [Mass/volume] in Blood RBC M/UL 5.33 MILLION/UL 10*6/uL 3.80-5.10 H re d blood count WBC CT BLOOD 11.3 10*3/uL 3.8-10.8 H leukocy te count, blood Lab Report: DRUG MONITOR, PA MARLENY 1, SCREEN, URINE, DRUG MONITOR, BUP, SCR ... PHENCYCLIDIN NEGATIVE ng/mL <25 N Phencyc lidine [Presence] in Urine OXYCODONE NEGATIVE <100 N Oxycodone urine screening METHADONEURN NEGATIVE <100 N Methado ne [Presence] in Urine by Screen method MARIJUANAURN NEGATIVE <20 N Marijua na, cannabinoid screen Urine COCAINE UR NEGATIVE <150 N cocaine, urine BENZODIAZ UR NEGATIVE <100 N Benzodi azepines [Presence] in Urine AMPHETAMI UR NEGATIVE <500 N Ampheta mines [Presence] in Urine Lab Report: LIPID PANEL WITH REFLEX TO DIRECT LDL, LIPID PANEL WITH REFL ... HGBA1C 10.7 % OF TOTAL HGB % <5.7 H Hemoglobin A1c/Hemoglobin, total in Blood - % B12 360 pg/mL 200-1100 N Cobalamin (V itamin B12) [Mass/volume] in Serum or Plasma RA FACTOR <14 IU/mL [iU]/mL <14 N Rheumatoi d factor [Units/volume] in Serum or Plasma SGPT (ALT) 13 U/L 6-29 N Alanine aminotransferase [Enzymatic activity/volume] in Serum or Plasma SGOT (AST) 15 U/L 10-30 N Aspartate aminotransferase [Enzymatic activity/volume] in Serum or Plasma ALK PHOS 86 U/L 31-125 N Alkaline aliza sphatase [Enzymatic activity/volume] in Blood BILI TOTAL 0.5 mg/dL 0.2-1.2 N Bilirubin. total [Mass/volume] in Serum or Plasma A/G RATIO 1.2 (calc) 1.0-2.5 N Albumin/ Globulin [Mass Ratio] in Serum or Plasma GLOBULIN TOT 3.5 G/DL (CALC) g/dL 1.9-3.7 N Globulin [Mass/volume] in Serum ALBUMIN EOP 4.3 g/dL 3.6-5.1 N Albumin [Mass/volume] in Serum or Plasma by Electrophoresis PROTEIN, TOT 7.8 g/dL 6.1-8.1 N Protein [Mass/volume] in Serum or Plasma CALCIUM 9.5 mg/dL 8.6-10.2 N Calcium [Moles/volume] in Serum or Plasma CO2 20 mmol/L 20-32 N Carbon dioxid e, total [Moles/volume] in Venous blood CHLORIDE BLD 98 mmol/L 98-110 N chloride , blood POTASSIUM 3.8 mmol/L 3.5-5.3 N Potassium [Moles/volume] in Serum or Plasma SODIUM 130 mmol/L 135-146 L Sodium [Moles/volume] in Serum or Plasma BUN/CREAT NOT APPLICABLE (calc) 6-22 Urea nitrogen/Creatinine [Mass Ratio] in Serum or Plasma CREATININE 0.73 mg/dL 0.50-0.96 N Creatini ne [Mass/volume] in Serum or Plasma BUN 15 mg/dL 7-25 N Urea nitrogen [Mass/volume] in Serum or Plasma GLUCOSE SER 245 mg/dL 65-99 H Glucose [Mass/volume] in Serum or Plasma TLDLDIR 67 mg/dL <100 Cholesterol i n LDL [Mass/volume] in Serum or Plasma - mg/dL NON-HDL CHOL See Note Below mg/dL (calc) mg/dL <130 cholesterol, non-HDL, total CHOL/HDL % See Note Below (calc) <5.0 cholesterol/HDL ratio, serum, percent LDL See Note Below mg/dL (calc) mg/dL Cholesterol in L DL [Mass/volume] in Serum or Plasma - mg/dL TRIGLYC TOT 2103 mg/dL <150 H Triglycer romulo [Mass/volume] in Serum or Plasma - mg/dL HDL TNP mg/dL Cholesterol i n HDL [Mass/volume] in Serum or Plasma - mg/dL CHOLESTEROL 344 mg/dL <200 H Cholester ol [Mass/volume] in Serum or Plasma - mg/dL Plan of Care Type Date Detail Referral Cardiology Refer ral General Referral Cardiology Refer ral General Referral excluded fr om report: [facility]erral [facility] [place] [facility], [address], [address] Referral excluded fr om report: Referral [facility] [place] [facility], [address] [place] [address], [place], [address] Referral [facility], [address], [place], [address] Referral [facility] [place] [facility] [address] Cardiology [address] [place], [place], [address] Referral [facility] -[facility] (all [facility]s & [facility]) Pain Relief [facility], [address] [place] [address], [address] Referral [facility] (all [facility] & [facility]) Pain Relief [facility], [address] [place] [address] [place], [address] Referral excluded fr om report: Referral [facility] [place] [facility] [address] Cardiology [address] [place], [address] Referral excluded fr om report: Referral [facility] [place], [address] [place], [address] Referral excluded fr om report: Pending order T1 CMP Pending order T1 HGBA1c Pending order T1 Lipid Panel Pending order T1 B12 Pending order T2 Rheumatoid Fa ctor Quant Pending order T2 Reticulocyte Count Pending order T2 + Drug Screen Gabapentin, Urine Pending order T1 Drug Screen S TANDARD-Urine w/o Confirmation Pending order T2 + Drug Screen Pregabalin/Lyrica, Urine Pending order T1 CBC with diff Pending order T1 CMP Pending order T2 Vitamin D 25 Hydroxy Pending order T1 Lipid Panel Pending order T1 CBC with diff Pending order T1 CMP Pending order T2 Vitamin D 25 Hydroxy Pending order T1 Lipid Panel Pending order Microalbumin (w creatinine) 56700 Pending order T1 CBC with diff Pending order T1 CMP Pending order T1 HGBA1c Pending order T1 Lipid Panel Pending order T1 TSH reflex to free T4 Pending order T1 TIBC w iron l evel Pending order T2 Vitamin D 25 Hydroxy Pending order T1 Hepatic Funct ion Panel Patient education Patient Educat ion Given Patient education Patient Educat ion Given Procedures Code Procedure Name Date Entry Date 4004F Patient screened for tobacco use and received tobacco cessation intervention CPT-3074F Most recent systolic blood pressure <130 mm Hg CPT-3078F Most recent diastolic blood pressure <80 mm Hg CPT-1159F Medication list documented in medical rec ord [id number] Diabetic foot examination 2 [id number] Monofilament foot sensation test [id number] Pedal pulse taking 0 CARD GEN Cardiology Referral General ENDO [facility] [place] [facility] [place] [facility] (all [facility] & [facility]) CARD [facility] [place] [facility] C ardiology Pain Management [facility]-Pain Managem ent [facility] 793 T2 Reticulocyte Count 12/24 4004F Patient screened for tobacco use and received tobacco cessation intervention CPT-3074F Most recent systolic blood pressure <130 mm Hg CPT-3074F Most recent systolic blood pressure <130 mm Hg CPT-1159F Medication list docu mented in medical record [id number] Giving encouragement to exercise [facility] 31576 T1 CMP [facility] 496 T1 HGBA1c [facility] 66904 T1 Lipid Panel [facility] 927 T1 B12 [facility] 4418 T2 Rheumatoid Factor Quant 2 [facility] 40046 T2 + Drug Screen Gabapentin, Urine 12/24 [facility] G1543 T1 Drug Screen STAND TOM-Urine w/o Confirmation [facility] 37284 T2 + Drug Screen Pregabalin/Lyrica, Urine 4004F Patient screened for tobacco use and received tobacco cessation intervention CPT-1159F Medication list docu mented in medical record CPT-3074F Most recent systolic blood pressure <130 mm Hg CPT-3078F Most recent diastoli c blood pressure <80 mm Hg [id number] Medication Reconciliation CPT-3061F Negative microalbumi og test result documented and reviewed [facility] 6399 T1 CBC with diff [facility] 34412 T1 CMP [facility] 76870 T2 Vitamin D 25 Hydroxy 2021 [facility] 18923 T1 Lipid Panel CPT-43550 Microalbumin (w creatinine) 71525 [id number] Medication Reconciliation CPT-3074F Most recent systolic blood pressure <130 mm Hg CPT-3079F Most recent diastoli c blood pressure 80-89 mm Hg CPT-1159F Medication list docu mented in medical record CPT-1160F Review of all medica tions by a prescribing practitioner CPT-06880 Brief Emotional/Behavioral Assessment 11/07/20 [facility] 6399 T1 CBC with diff [facility] 21396 T1 CMP [facility] 496 T1 HGBA1c [facility] 40874 T1 Lipid Panel [facility] 97051 T1 TSH reflex to free T4 11/07/20 [facility] 7573 T1 TIBC w iron level [facility] 96353 T2 Vitamin D 25 Hydroxy 2021 [facility] 96451 T1 Hepatic Function Panel 18/08/21 Vital Signs Date Name Value Unit Description BMI (Body Mass Index) 31.12 kg/m2 Bod y Mass Index (Ratio) Body Temperature 97.4 [degF] temperat ure E&M Body Temperature 36.33 Jennifer temperat ure in centigrade E&M BP Diastolic 72 mm[Hg] blood pressu re, diastolic BP Systolic 106 mm[Hg] blood pressur e, systolic BSA (Body Surface Area) 2.16 b corina surface area Heart Rate 74 /min pulse rate Height 69 [in_us] height E&M Height 175.26 cm height in cent imeters E&M Respiratory Rate 20 /min respirat ory rate E&M Weight Measured 95.45 kg weight in kilograms E&M Weight Measured 210 [lb_av] weight E& M Weight Measured 210 [lb_av] weight E& M Heart Rate 114 /min pulse rate 10 Immunizations No information available. Advance Directives No information available.
--- NOTE | 2025-03-15 15:46 | XR_ITS ---
PROCEDURE INFORMATION: Exam: XR Chest Exam date and time: 03/15/2025 4:33 PM Age: 30 years old Clinical indication: Pain; Angina pectoris; Additional info: SOA, cough, cp TECHNIQUE: Imaging protocol: Radiologic exam of the chest. Views: 1 view. COMPARISON: CT ANGIO CHEST PE PROTOCOL 10/30/2024 2:04 PM FINDINGS: Lungs: Unremarkable. No consolidation. Pleural spaces: Unremarkable. No pleural effusion. No pneumothorax. Heart/Mediastinum: Unremarkable. No cardiomegaly. Bones/joints: Unremarkable. IMPRESSION: No acute findings.
--- NOTE | 2025-03-15 15:50 | HMH.EDGENADL ---
Discharge Plan Disposition Patient Disposition: Home, Self-Care Condition: Good Prescriptions Prescriptions: New ondansetron 4 mg tablet,disintegrating 4 mg PO Q6H PRN (Reason: nausea and vomiting) Qty: 14 0RF No Action amlodipine 2.5 mg Tablet 2.5 mg PO DAILY lisinopril 10 mg Tablet 10 mg PO DAILY fenofibrate 160 mg Tablet 160 mg PO DAILY pantoprazole [Protonix] 20 mg Tablet,Delayed Release (Dr/Ec) 20 mg PO DAILY pregabalin [Lyrica] 200 mg Capsule 200 mg PO TID insulin glargine [Lantus U-100 Insulin] 100 unit/mL Solution 32 unit SQ BID tizanidine 4 mg tablet 4 mg PO DAILYDM Patient Comments: TAKE 1 TABLET BY MOUTH 3 TIMES DAILY NEEDED. FOR MUSCLE SPASM atorvastatin [Lipitor] 40 mg Tablet 40 mg PO DAILY duloxetine [Cymbalta] 60 mg Capsule,Delayed Release(Dr/Ec) 60 mg PO BID Referrals Follow up/Referrals: Provider,Referral, MD [Primary Care Provider, Medical] - See instructions Activity Restrictions/Add. Instructions Additional Instructions/Restrictions: Please return to the emergency department with any worsening signs or symptoms, please utilize your antinausea medicine as needed, recommend progress diet as tolerated, you can utilize any of the [id number] cold and flu medication for symptomatic relief, please follow-up with your family doctor in the upcoming days, continue to take your pain medicine regimen as prescribed at home. Clinical Impressions Clinical Impression: Chest pain, Upper respiratory infection, Nausea & vomiting Instructions Patient Instructions: DI for Acute Bronchitis, DI for Atypical Chest Pain, DI for Vomiting -- Adult Print Language Print Language: Serbian Discharge ED Provider: Víctor Teixeira General Adult HPI <JAY JAY Lynch - Last Filed: 03/15/25 18:47> General Chief complaint: Upper Respiratory Infection Stated complaint: Chest Pain Time Seen by Provider: 03/15/25 15:42 Mode of Arrival: Ambulatory Source of Information: Patient Limitations: No Limitations Description of Symptoms (Recalled from ER Triage Doc. by RN): upper respiratory symptoms. cough,causing nausea. pt is diabetic History of Present Illness HPI narrative: 30-year-old female presents to the emergency department with subjective fever chills cough congestion, myalgias, chest pain worse when coughing, as well as nausea vomiting poor p.o. 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 Patient tells me she has not been able to keep anything down , including her Percocet pain medication . Onset (ago): day(s) Related Data Home Medications ?Medication ?Instructions ?Recorded ?Confirmed amlodipine 2.5 mg tablet 2.5 mg PO DAILY 10/30/24 10/30/24 atorvastatin 40 mg tablet (Lipitor) 40 mg PO DAILY 10/30/24 10/30/24 duloxetine 60 mg capsule,delayed 60 mg PO BID 10/30/24 10/30/24 release (Cymbalta) fenofibrate 160 mg tablet 160 mg PO DAILY 10/30/24 10/30/24 insulin glargine 100 unit/mL 32 unit SQ BID 10/30/24 10/30/24 subcutaneous solution (Lantus U-100 Insulin) lisinopril 10 mg tablet 10 mg PO DAILY 10/30/24 10/30/24 pantoprazole 20 mg tablet,delayed 20 mg PO DAILY 10/30/24 10/30/24 release (Protonix) pregabalin 200 mg capsule (Lyrica) 200 mg PO TID 10/30/24 10/30/24 tizanidine 4 mg tablet 4 mg PO DAILYDM 10/30/24 10/30/24 Previous Rx's ?Medication ?Instructions ?Recorded ondansetron 4 mg disintegrating 4 mg PO Q6H PRN nausea and 03/15/25 tablet vomiting #14 tabs Allergies Allergy/AdvReac Type Severity Reaction Status Date / Time Penicillins Allergy Rash Verified 10/30/24 10:31 [facility] <JAY JAY Lynch - Last Filed: 03/15/25 18:47> [facility] Disclaimer: The information contained in this section may have been updated after the patient was seen, as this information can be updated by other users. Medical History (Updated 03/15/25 @ 18:46 by JAY JAY Lynch) Hypertension Gastroparesis Type 1 diabetes mellitus Social History (Updated 10/30/24 @ 14:52 by Mack Vincent MD) Smoking Status: Current every day smoker alcohol intake: current current occupational status: employed Travel in the last 8 weeks?: None Have you lived/traveled outside [place] in past 30 days?: No Contact w/someone who lives/traveled outside US past 30 days?: No Exposure to someone with infectious disease in past 14 days?: No Do you have a fever (greater than 100.4 F or 38 C)?: No Have you tested positive for COVID-19?: No Exposed to someone with COVID-19 in past 14 days?: No Do you have a sore throat?: No Do you have a cough?: No Do you have any weakness?: No Do you have any diarrhea?: No Are you experiencing any unusual bleeding?: No Do you have any muscle aches/pain?: No Do you have any abdominal pain?: No Are you experiencing loss of taste or smell?: No <JAY JAY Lynch - Last Filed: 03/15/25 18:47> ROS Obtained: Yes All systems reviewed & no additional complaints except as documented Physical Exam <JAY JAY Lynch - Last Filed: 03/15/25 18:47> General General appearance: alert and in no apparent distress Head Head exam: atraumatic and normocephalic Eye Eye exam: Present PERRL and EOMI ENT ENT exam: Present mucous membranes moist Neck Neck exam: Present normal inspection Chest Chest inspection: Present normal inspection and symmetric chest wall rise Respiratory Respiratory exam: Present normal lung sounds bilaterally; Absent respiratory distress, wheezes or stridor Cardiovascular Cardiovascular exam: Present regular rate and normal rhythm Abdominal Exam Abdominal exam: Present soft; Absent tenderness, guarding, rebound or rigidity Extremities Exam Extremities exam: Present normal inspection Neurological Exam Neurological exam: Present alert and oriented X3 Psychiatric Psychiatric exam: Present normal affect Skin Skin exam: Present warm and dry Medical Decision Making <JAY JAY Lynch - Last Filed: 03/15/25 18:47> Medical Records Medical records reviewed: Yes I reviewed the patient's medical records. Screening: Per USPSTF and CDC recommendations, given the prevalence of disease in our region, it is our hospital?s policy to screen for HIV and viral Hepatitis for all patients aged 18 and over and those with ongoing risk factors. Remi Inquiry Pt receiving controlled substance: No Remi was queried for this patient: No Vital Signs: 03/15/25 15:40 03/15/25 16:00 03/15/25 16:33 Temperature 98.2 F Temperature Source Oral Pulse Rate [Right] 81 Respiratory Rate 18 16 17 Blood Pressure 172/117 H 167/109 H Blood Pressure [Right Arm] 159/108 H Blood Pressure Mean [Right Arm] 125 02 Sat by Pulse Oximetry 99 Oxygen Delivery Method Room Air 03/15/25 17:30 Temperature Temperature Source Pulse Rate [Right] Respiratory Rate 13 Blood Pressure 172/112 H Blood Pressure [Right Arm] Blood Pressure Mean [Right Arm] 02 Sat by Pulse Oximetry Oxygen Delivery Method Lab Data Lab results reviewed: Yes I reviewed the patient's lab results. Lab Results 03/15/25 15:43: SARS-CoV-2 (PCR) Not detected, Influenza A Untype (PCR) Not detected, Influenza Type B (PCR) Not detected 03/15/25 15:50: WBC 12.7 H, RBC 5.02, Hgb 14.5, Hct 42.0, MCV 83.7, MCH 28.9, MCHC 34.5, RDW 12.9, Plt Count 295, MPV 10.1, Neut % (Auto) 89.4 H, Lymph % (Auto) 7.9 L, [place] % (Auto) 1.6 L, Eos % (Auto) 0.1, Baso % (Auto) 0.4, Neut # (Auto) 11.4 H, Lymph # (Auto) 1.0, [place] # (Auto) 0.2, Eos # (Auto) 0.0, Baso # (Auto) 0.1, D-Dimer 0.98 H, Sodium 137, Potassium 4.1, Chloride 103, Carbon Dioxide 25, Anion Gap 13.1, BUN 12, Creatinine 0.70, Estimated Creat Clear 153, Estimated GFR 99, Est GFR ( Amer) 120, Glucose 278 H, Calcium 10.2, Magnesium 1.8, Total Bilirubin 0.6, AST 30, ALT 22, Alkaline Phosphatase 70, Troponin I < 0.01, NT-Pro-B Natriuret Pep 455 H, Total Protein 8.3 H D, Albumin 4.5, Globulin 3.8 H, Albumin/Globulin Ratio 1.2, Lipase 27, HCV Ab ANAID w/Rflx PCR Qn Negative, HIV Ag/Ab Combo Qual Negative 03/15/25 16:31: Urine Color Yellow, Urine Appearance Clear, Urine pH 7.0, Ur Specific [place] 1.015, Urine Protein Trace, Urine Glucose (UA) 2+, Urine Ketones 3+, Urine Blood Negative, Urine Nitrate Negative, Urine Bilirubin Negative, Urine Urobilinogen 0.2, Ur Leukocyte Esterase Negative, Urine RBC 5-10, Urine WBC 10-20, Ur Squamous Epith Cells 20-50, Urine Bacteria 4+, Urine Mucus 1+, Urine Yeast Occasional, Urine HCG, Qual Negative 03/15/25 17:58: Troponin I < 0.01 03/15/25 15:50 03/15/25 15:50 Orders (Tests/Meds): ED MEDICATIONS Discontinued Medications Generic Name Dose Route Start Last Admin Trade Name Emiliano PRN Reason Stop Dose Admin Hydrocodone Bitart/Acetaminophen 1 tab 03/15/25 17:54 03/15/25 18:00 Hydrocodone/Apap 5/325 Mg Tablet PO 03/15/25 17:55 1 tab ONCE ONE Administration Sodium Chloride 1,000 mls @ 999 mls/hr 03/15/25 15:46 03/15/25 16:17 Sod Chlor 0.9% 1000ml Bag IV 03/15/25 16:46 999 mls/hr .Q1H1M ONE Administration Iopamidol 70 ml 03/15/25 17:13 03/15/25 17:14 Iopamidol-370 (76%);100ml Bottle IV 03/15/25 17:14 70 ml ONCE ONE Administration Morphine Sulfate 2 mg 03/15/25 16:48 03/15/25 16:55 Morphine 2mg/Ml Syringe IV 03/15/25 16:49 2 mg ONCE ONE Administration Ondansetron HCl 4 mg 03/15/25 15:47 03/15/25 16:18 Ondansetron 4mg/2ml Vial IV 03/15/25 15:48 4 mg ONCE ONE Administration Sodium Chloride 10 ml 03/15/25 17:13 03/15/25 17:14 Sodium Chloride 0.9% 10ml Syr (Rad Only) IV 03/15/25 17:14 10 ml ONCE ONE Administration Sodium Chloride 50 ml 03/15/25 17:13 03/15/25 17:14 0.9 % Sodium Chloride 50 Ml Vial IV 03/15/25 17:14 50 ml ONCE ONE Administration ORDERS Category Date Time Status CT angio chest PE protocol Stat Cat Scan 03/15/25 16:48 Completed XR chest portable Stat Exams 03/15/25 15:46 Completed Complete Blood Count Auto Diff Stat Lab 03/15/25 15:50 Completed Comprehensive Metabolic Panel Stat Lab 03/15/25 15:50 Completed D-Dimer Stat Lab 03/15/25 15:50 Completed HIV Combo Stat Lab 03/15/25 15:50 Completed Hepatitis C Ab Qual. W/ RFX Stat Lab 03/15/25 15:50 Completed Lipase Stat Lab 03/15/25 15:50 Completed Magnesium Stat Lab 03/15/25 15:50 Completed NT Pro Brain Natriuretic Pep. Stat Lab 03/15/25 15:50 Completed Rapid PCR Covid and Flu A/B Stat Lab 03/15/25 15:43 Completed Troponin I Q3H Lab 03/15/25 17:58 Completed Troponin I Q3H Lab 03/15/25 22:00 Ordered Troponin I Stat Lab 03/15/25 15:50 Completed Urinalysis and Microscopic Stat Lab 03/15/25 16:31 Completed Urine , HCG Qual. Stat Lab 03/15/25 16:31 Completed Urine Culture Stat Micro 03/15/25 16:31 Received Medical Decision Narrative: 30-year-old female presents to the emergency department with multiple medical complaints, see HPI for detail past medical history, differential diagnosis include but not limited to, malingering, acute URI, acute bronchitis, pneumonia, cardiac arrhythmia, electrolyte disturbance, ACS, PE, gastroenteritis, gastritis, complex regional pain syndrome, viral URI among others. I discussed patient case with attending physician Dr. Teixeira Will obtain basic laboratory studies, CXR, EKG, D-dimer, lipase magnesium level proBNP rapid PCR COVID and flu, troponin, urinalysis, urine hCG qualitative, will give 1 L IV NS, and 4 mg IV Zofran for nausea. CBC is notable for mild leukocytosis 12.7, similar to previous CBC/leukocytosis in October 2024. COVID and influenza are negative via PCR D-dimer is elevated at 0.98, proBNP is elevated at 455, troponin is less than 0.01, thus will obtain CTA chest with and without contrast. hCG qualitative is negative. Patient also complaining of pain per nursing staff, will give 2 mg IV morphine for pain. UA is unremarkable I reviewed the patient's chest x-ray along with corresponding radiological report, no acute findings. Microscopic urinalysis notable 4+ bacteria, negative leukocyte esterase, negative nitrites, 3+ ketonuria, negative hematuria, 10-20 WBCs. 20-50 squamous epithelial cells. I reviewed the patient's CTA chest with and without contrast PE protocol, there is no evidence for pulmonary embolism, no acute infiltrates. I was notified by nursing staff the patient is documenting of some pain, will give her at home dose of 5 mg p.o. [place] as she takes Percocet at home. This will also serve as a p.o. challenge. Second troponin is less than 0.01 thus within normal limits. Patient is able to tolerate p.o. intake with 5 mg p.o. [place], patient still complaining of some pain, patient has pain regimen at home to include Percocet, that she follows with her family doctor with, recommended pain management, patient will follow-up with PCP and other providers as directed, strict ED return precautions given, patient most likely has viral syndrome as significant other has similar symptomatology, I will prescribe 4 mg p.o. Zofran sublingual as needed for nausea and vomiting, patient was given strict ED return precautions. Patient and family voiced understanding and agree with current treatment/discharge plan. <Víctor Teixeira MD - Last Filed: 03/15/25 18:52> Vital Signs: 03/15/25 15:40 03/15/25 16:00 03/15/25 16:33 Temperature 98.2 F Temperature Source Oral Pulse Rate [Right] 81 Respiratory Rate 18 16 17 Blood Pressure 172/117 H 167/109 H Blood Pressure [Right Arm] 159/108 H Blood Pressure Mean [Right Arm] 125 02 Sat by Pulse Oximetry 99 Oxygen Delivery Method Room Air 03/15/25 17:30 Temperature Temperature Source Pulse Rate [Right] Respiratory Rate 13 Blood Pressure 172/112 H Blood Pressure [Right Arm] Blood Pressure Mean [Right Arm] 02 Sat by Pulse Oximetry Oxygen Delivery Method Lab Data Lab Results 03/15/25 15:43: SARS-CoV-2 (PCR) Not detected, Influenza A Untype (PCR) Not detected, Influenza Type B (PCR) Not detected 03/15/25 15:50: WBC 12.7 H, RBC 5.02, Hgb 14.5, Hct 42.0, MCV 83.7, MCH 28.9, MCHC 34.5, RDW 12.9, Plt Count 295, MPV 10.1, Neut % (Auto) 89.4 H, Lymph % (Auto) 7.9 L, [place] % (Auto) 1.6 L, Eos % (Auto) 0.1, Baso % (Auto) 0.4, Neut # (Auto) 11.4 H, Lymph # (Auto) 1.0, [place] # (Auto) 0.2, Eos # (Auto) 0.0, Baso # (Auto) 0.1, D-Dimer 0.98 H, Sodium 137, Potassium 4.1, Chloride 103, Carbon Dioxide 25, Anion Gap 13.1, BUN 12, Creatinine 0.70, Estimated Creat Clear 153, Estimated GFR 99, Est GFR ( Amer) 120, Glucose 278 H, Calcium 10.2, Magnesium 1.8, Total Bilirubin 0.6, AST 30, ALT 22, Alkaline Phosphatase 70, Troponin I < 0.01, NT-Pro-B Natriuret Pep 455 H, Total Protein 8.3 H D, Albumin 4.5, Globulin 3.8 H, Albumin/Globulin Ratio 1.2, Lipase 27, HCV Ab ANAID w/Rflx PCR Qn Negative, HIV Ag/Ab Combo Qual Negative 03/15/25 16:31: Urine Color Yellow, Urine Appearance Clear, Urine pH 7.0, Ur Specific [place] 1.015, Urine Protein Trace, Urine Glucose (UA) 2+, Urine Ketones 3+, Urine Blood Negative, Urine Nitrate Negative, Urine Bilirubin Negative, Urine Urobilinogen 0.2, Ur Leukocyte Esterase Negative, Urine RBC 5-10, Urine WBC 10-20, Ur Squamous Epith Cells 20-50, Urine Bacteria 4+, Urine Mucus 1+, Urine Yeast Occasional, Urine HCG, Qual Negative 03/15/25 17:58: Troponin I < 0.01 Orders (Tests/Meds): ED MEDICATIONS Discontinued Medications Generic Name Dose Route Start Last Admin Trade Name Freq PRN Reason Stop Dose Admin Hydrocodone Bitart/Acetaminophen 1 tab 03/15/25 17:54 03/15/25 18:00 Hydrocodone/Apap 5/325 Mg Tablet PO 03/15/25 17:55 1 tab ONCE ONE Administration Sodium Chloride 1,000 mls @ 999 mls/hr 03/15/25 15:46 03/15/25 16:17 Sod Chlor 0.9% 1000ml Bag IV 03/15/25 16:46 999 mls/hr .Q1H1M ONE Administration Iopamidol 70 ml 03/15/25 17:13 03/15/25 17:14 Iopamidol-370 (76%);100ml Bottle IV 03/15/25 17:14 70 ml ONCE ONE Administration Morphine Sulfate 2 mg 03/15/25 16:48 03/15/25 16:55 Morphine 2mg/Ml Syringe IV 03/15/25 16:49 2 mg ONCE ONE Administration Ondansetron HCl 4 mg 03/15/25 15:47 03/15/25 16:18 Ondansetron 4mg/2ml Vial IV 03/15/25 15:48 4 mg ONCE ONE Administration Sodium Chloride 10 ml 03/15/25 17:13 03/15/25 17:14 Sodium Chloride 0.9% 10ml Syr (Rad Only) IV 03/15/25 17:14 10 ml ONCE ONE Administration Sodium Chloride 50 ml 03/15/25 17:13 03/15/25 17:14 0.9 % Sodium Chloride 50 Ml Vial IV 03/15/25 17:14 50 ml ONCE ONE Administration ORDERS Category Date Time Status CT angio chest PE protocol Stat Cat Scan 03/15/25 16:48 Completed XR chest portable Stat Exams 03/15/25 15:46 Completed Complete Blood Count Auto Diff Stat Lab 03/15/25 15:50 Completed Comprehensive Metabolic Panel Stat Lab 03/15/25 15:50 Completed D-Dimer Stat Lab 03/15/25 15:50 Completed HIV Combo Stat Lab 03/15/25 15:50 Completed Hepatitis C Ab Qual. W/ RFX Stat Lab 03/15/25 15:50 Completed Lipase Stat Lab 03/15/25 15:50 Completed Magnesium Stat Lab 03/15/25 15:50 Completed NT Pro Brain Natriuretic Pep. Stat Lab 03/15/25 15:50 Completed Rapid PCR Covid and Flu A/B Stat Lab 03/15/25 15:43 Completed Troponin I Q3H Lab 03/15/25 17:58 Completed Troponin I Q3H Lab 03/15/25 22:00 Ordered Troponin I Stat Lab 03/15/25 15:50 Completed Urinalysis and Microscopic Stat Lab 03/15/25 16:31 Completed Urine , HCG Qual. Stat Lab 03/15/25 16:31 Completed Urine Culture Stat Micro 03/15/25 16:31 Received Medical Decision Narrative: 30-year-old female presents to the emergency department with multiple medical complaints, see HPI for detail past medical history, differential diagnosis include but not limited to, malingering, acute URI, acute bronchitis, pneumonia, cardiac arrhythmia, electrolyte disturbance, ACS, PE, gastroenteritis, gastritis, complex regional pain syndrome, viral URI among others. I discussed patient case with attending physician Dr. Teixeira Will obtain basic laboratory studies, CXR, EKG, D-dimer, lipase magnesium level proBNP rapid PCR COVID and flu, troponin, urinalysis, urine hCG qualitative, will give 1 L IV NS, and 4 mg IV Zofran for nausea. CBC is notable for mild leukocytosis 12.7, similar to previous CBC/leukocytosis in October 2024. COVID and influenza are negative via PCR D-dimer is elevated at 0.98, proBNP is elevated at 455, troponin is less than 0.01, thus will obtain CTA chest with and without contrast. hCG qualitative is negative. Patient also complaining of pain per nursing staff, will give 2 mg IV morphine for pain. UA is unremarkable I reviewed the patient's chest x-ray along with corresponding radiological report, no acute findings. Microscopic urinalysis notable 4+ bacteria, negative leukocyte esterase, negative nitrites, 3+ ketonuria, negative hematuria, 10-20 WBCs. 20-50 squamous epithelial cells. I reviewed the patient's CTA chest with and without contrast PE protocol, there is no evidence for pulmonary embolism, no acute infiltrates. I was notified by nursing staff the patient is documenting of some pain, will give her at home dose of 5 mg p.o. [place] as she takes Percocet at home. This will also serve as a p.o. challenge. Second troponin is less than 0.01 thus within normal limits. Patient is able to tolerate p.o. intake with 5 mg p.o. [place], patient still complaining of some pain, patient has pain regimen at home to include Percocet, that she follows with her family doctor with, recommended pain management, patient will follow-up with PCP and other providers as directed, strict ED return precautions given, patient most likely has viral syndrome as significant other has similar symptomatology, I will prescribe 4 mg p.o. Zofran sublingual as needed for nausea and vomiting, patient was given strict ED return precautions. Patient and family voiced understanding and agree with current treatment/discharge plan. I was consulted by the PRIYANK, and we discussed the complexity of the problems being addressed. I approved the treatment and management plan for this patient's care in the emergency department, thus performing a substantive portion of the medical decision making. Víctor Teixeira MD Critical Care <JAY JAY Lynch - Last Filed: 03/15/25 18:47> Critical Care Time Critical Care Time: No
[2025-03-15 16:00] VITALS: BP 172/117; RESP 16
[2025-03-15 16:05] LABS: Coronavirus 19, PCR Not Detected (NotDetected); Influenza A, PCR Not Detected (NotDetected); Influenza B, PCR Not Detected (NotDetected)
[2025-03-15 16:11] LABS: Basophils # 0.1 K/mm3 (0-0.2); Basophils % 0.4 % (0.1-2.0); Eosinophils % 0.1 % (0.1-12.0); Hemoglobin 14.5 g/dL (12.2-16.2); Immature Granulocytes # 0.08 10^3uL; Immature Granulocytes % 0.6 %; Lymphocytes % 7.9 % (10-50); Mean Corpuscular HGB Conc 34.5 g/dL (31.8-35.4); Mean Corpuscular Hemoglobin 28.9 pg (27.0-31.2); Mean Corpuscular Volume 83.7 fl (81-99); Mean Platelet Volume 10.1 fl (7.4-10.4); Monocytes # 0.2 K/mm3 (0.1-1.0); Monocytes % 1.6 % (1.7-9.3); Neutrophils # 11.4 K/mm3 (1.8-7.8); Neutrophils % 89.4 % (37.0-80.0); Nucleated Red Blood Cells # 0 10^3/uL; Nucleated Red Blood Cells % 0 %; Platelet Count 295 K/mm3 (142-424); Red Blood Count 5.02 M/mm3 (4.20-5.40); Red Cell Distribution Width 12.9 % (11.5-17.5); Red Cell Distribution Width-SD 38.8 fL; White Blood Count 12.7 K/mm3 (4.8-10.8)
[2025-03-15 16:14] LABS: Alanine Aminotransferase 22 U/L (12-78); Albumin Level 4.5 g/dl (3.5-5.0); Albumin/Globulin Ratio 1.2 (1.1-1.8); Alkaline Phosphatase 70 U/L (38-126); Anion Gap 13.1 mEq/L (5-15); Aspartate Amino Transferase 30 U/L (14-36); Bilirubin,Total 0.6 mg/dl (0.2-1.3); Blood Urea Nitrogen 12 mg/dl (7-17); Calcium 10.2 mg/dl (8.4-10.2); Carbon Dioxide 25 mmol/L (22.0-30.0); Chloride 103 mmol/L (98-107); Creatinine Clearance Estimated 153 mL/min (50-200); Estimated Glomerular Filt Rate 99 ml/min (>60); GFR (African American) 120 ML/MIN (>60); Globulin 3.8 g/dL (1.3-3.2); Glucose 278 mg/dl (74-100); Lipase 27 U/L (23-300); Magnesium 1.8 mg/dl (1.6-2.3); Potassium 4.1 mmoL/L (3.5-5.1); Sodium 137 mmol/L (136-145); Total Protein,Serum 8.3 g/dl (6.3-8.2)
[2025-03-15] MEDS: 0.9 % SODIUM CHLORIDE 1000ML 1,000 ML 999 ML IV (16:17)
[2025-03-15] MEDS: ONDANSETRON 4MG/2ML VIAL 4 MG IV (16:18)
[2025-03-15 16:20] LABS: D-Dimer 0.98 ug/mL (0.0-0.5)
[2025-03-15 16:25] LABS: NT Pro Brain Natriuretic Pep. 455 pg/mL (0-125)
[2025-03-15 16:26] LABS: Troponin I < 0.01 ng/ml (0.00-0.034)
[2025-03-15 16:33] VITALS: BP 167/109; RESP 17
[2025-03-15 16:39] LABS: Microscopic, Urine URINE MICROSCOPIC (MICROSCOPIC)
[2025-03-15 16:44] LABS: Urine Pregnancy, HCG Qual. Negative (Negative)
--- NOTE | 2025-03-15 16:48 | CT_ITS ---
PROCEDURE INFORMATION: Exam: CTA Chest With Contrast Exam date and time: 03/15/2025 5:01 PM Age: 30 years old Clinical indication: Abnormal findings; Abnormal diagnostic tests; Elevated d-dimer; Additional info: SOA, cp, elevated d-dimer TECHNIQUE: Imaging protocol: Computed tomographic angiography of the chest with contrast. Exam focused on the arteries. 3D rendering (Not supervised by radiologist): MIP and/or 3D reconstructed images were created by the technologist. Radiation optimization: All CT scans at this facility use at least one of these dose optimization techniques: automated exposure control; mA and/or kV adjustment per patient size (includes targeted exams where dose is matched to clinical indication); or iterative reconstruction. Contrast material: ISOVUE 370; Contrast volume: 70 ml; Contrast route: INTRAVENOUS (IV); COMPARISON: CT ANGIO CHEST PE PROTOCOL 10/30/2024 2:04 PM FINDINGS: Pulmonary arteries: No CT evidence for pulmonary embolism. Great vessels off aortic arch: The mediastinal structures including the esophagus, trachea, great vessels, and heart show no evidence of injury or acute pathologic processes. Aorta: Unremarkable. No aortic aneurysm. No aortic dissection. Lungs: No acute infiltrates.. Pleural spaces: Unremarkable. No pneumothorax. No pleural effusion. Heart: See Great vessels off aortic arch finding. Lymph nodes: Unremarkable. No enlarged lymph nodes. Bones/joints: Unremarkable. No acute fracture. Soft tissues: Unremarkable. IMPRESSION: 1. No CT evidence for pulmonary embolism. 2. No acute infiltrates..
[2025-03-15 16:54] LABS: Appearance,Urine CLEAR (Clear); Bilirubin,Urine Negative (Negative); Blood, Urine Negative (Negative); Color,Urine YELLOW (Yellow); Glucose,Urine (UA) 2+ (Negative); Ketones,Urine 3+ (Negative); Leukocyte Esterase,Urine Negative (Negative); Nitrate,Urine Negative (Negative); Protein,Urine TRACE (Negative); Specific Gravity, Urine 1.015 (1.005-1.030); Urobilinogen,Urine 0.2 EU/dl (0.2)
[2025-03-15] MEDS: MORPHINE 2MG/ML SYRINGE 2 MG IV (16:55)
[2025-03-15 17:00] LABS: Bacteria,Urine 4+ /lpf; Mucus,Urine 1+ /lpf; Squamous Epithelial Cell,Urine 20-50 #/hpf (0-5); Yeast,Urine Occasional /lpf
[2025-03-15 17:08] LABS: HIV Combo NEGATIVE (Negative)
[2025-03-15] MEDS: SODIUM CHLORIDE 0.9% 10ML SYR (RAD ONLY) 10 ML IV (17:14)
[2025-03-15] MEDS: IOPAMIDOL-370 (76%);100ML BOTTLE 70 ML IV (17:14)
[2025-03-15] MEDS: 0.9 % SODIUM CHLORIDE 50 ML VIAL IV (17:14)
[2025-03-15 17:15] LABS: Hepatitis C Ab Qual. W/ RFX NEGATIVE (Negative)
[2025-03-15 17:30] VITALS: BP 172/112; RESP 13
[2025-03-15] MEDS: HYDROCODONE/APAP 5/325 MG TABLET 1 TAB PO (18:00)
[2025-03-15 18:40] LABS: Troponin I < 0.01 ng/ml (0.00-0.034)
[2025-03-15 19:00] VITALS: BP 172/112; PULSE 81; RESP 13; TEMP 36.8; O2SAT 99
== END 2025-03-15 19:01 | disposition home or self-care (01) ==
PROVIDERS: Physician Assistant; Emergency Provider Emergency Medicine
DX: R07.9 Chest pain, unspecified (principal); R11.2 Nausea with vomiting, unspecified; J06.9 Acute upper respiratory infection, unspecified; E10.9 Type 1 diabetes mellitus without complications; I10 Essential (primary) hypertension; F17.210 Nicotine dependence, cigarettes, uncomplicated
CPT/HCPCS: 71045; 71275; 80053; 81001; 81025; 83690; 83735; 83880; 84484; 85025; 85378; 86803; 87086; 87389; 87636; 93005; 96361; 96374; 96375; 99285; J2270; J2405; J7030; Q9967